=== PATIENT | female | born 1960 | race Caucasian/White ===

== ENCOUNTER → 2016-12-18 | Outpatient (CLI) | payer OTHER ==
[~2016-12-18] MED LIST: CHOL10003 PO; EYE VITAMIN; MELO-273 PO; MULT-746 PO
== END ==
LOC: LABN 10:25
PROVIDERS: ATTEND Family Medicine
DX: I89.0 Lymphedema, not elsewhere classified (principal)
CPT/HCPCS: 85379

== ENCOUNTER 2016-12-23 14:49 | Emergency (ER) | payer BC, OTHER ==
[~2016-12-23] VITALS: Ht 170.2 cm; Wt 63.8 kg
[~2016-12-23 14:49] MED LIST changes: -MELO-273 PO
[2016-12-23 14:50] VITALS: Ht 170.2 cm; Wt 63.8 kg
--- OUTSIDE RECORDS SUMMARY | 2016-12-23 14:52 | XMS REPORT | Referral Summary ---
Author Organization Unknown Address Unknown Phone Unavailable Care Team Providers Care Pressure Control Supervisor Name Role Phone Daniel Manuel Primary Care Physician [phone] Encounter [facility] LILLIAN [id number] Date(s): 09/18/14 - 09/18/14 [address], [address] [place] [address]- Discharge Diagnosis: Hyperthyroidism Discharge Diagnosis: Chronic abdominal pain Discharge Diagnosis: Well woman exam Discharge Diagnosis: Hyperlipemia Discharge Diagnosis: Hypertension Discharge Disposition: Home or Self Care Attending Physician: Julia Wise APRN Admitting Physician: Julia Wise APRN Vital Signs Most recent to 1 oldest [Reference Range]: Temperature Tympanic 36.5 degC [36.6-38.1 degC] *LOW* (09/18/14 2:46 PM) Blood Pressure 110/64 mmHg [90-140/60-90 mmHg] (09/18/14 2:46 PM) Problem List Condition Effective Dates Status Health Status Informant 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 ) Closed reduction Active compound Fracture left wrist(Confirmed) Right Axillary 2013 Active mass(Confirmed) Chicken Active pox(Confirmed) Allergies, Adverse Reactions, Alerts Substance Reaction Severity Status codeine swelling Active Medications iodine Start Date: 09/13/14 Status: Ordered Multiple Vitamins with Folic Acid and Iron oral tablet Multi-Freda Special Instructions: Multi-Freda Start Date: 09/13/14 Status: Ordered Vitamin D3 Vit D3/Folic Acid/B2/B6/B12 Special Instructions: Vit D3/Folic Acid/B2/B6/B12 Start Date: 09/13/14 Status: Ordered Results Hematology Most recent to 1 oldest [Reference Range]: WBC [4.8-10.8 K/uL] 5.9 K/uL (09/18/14 3:33 PM) RBC [4.00-5.20 M/uL] 4.43 M/uL (09/18/14 3:33 PM) Hgb [12.0-16.0 13.4 gm/dL gm/dL] (09/18/14 3:33 PM) Hct [37.0-47.0 %] 40.1 % (09/18/14 3:33 PM) MCV [82.0-99.0 fL] 90.5 fL (09/18/14 3:33 PM) MCH [27.0-32.0 pg] 30.2 pg (09/18/14 3:33 PM) MCHC [32.0-36.0 33.4 gm/dL gm/dL] (09/18/14 3:33 PM) RDW [11.5-14.5 %] 14.3 % (09/18/14 3:33 PM) Platelet [150-400 197 K/uL K/uL] (09/18/14 3:33 PM) MPV [8.8-14.8 fL] 11.0 fL (09/18/14 3:33 PM) Immature 0.2 % Granulocytes (09/18/14 3:33 PM) [0.0-1.0 %] Neutrophils [51-75 59 % %] (09/18/14 3:33 PM) Lymphocytes [20-46 30 % %] (09/18/14 3:33 PM) Monocytes [4-11 %] 10 % (09/18/14 3:33 PM) Eosinophils [0-4 %] 1 % (09/18/14 3:33 PM) Basophils [0-2 %] 1 % (09/18/14 3:33 PM) Neutro Absolute 3.48 THOUS [1.90-7.00 THOUS] (09/18/14 3:33 PM) Lymph Absolute 1.77 THOUS [0.80-3.30 THOUS] (09/18/14 3:33 PM) Hubbard Absolute 0.57 THOUS [0.30-1.00 THOUS] (09/18/14 3:33 PM) Eos Absolute 0.04 THOUS [0.00-0.50 THOUS] (09/18/14 3:33 PM) Baso Absolute 0.04 THOUS [0.00-0.20 THOUS] (09/18/14 3:33 PM) Chemistry Most recent to 1 oldest [Reference Range]: Sodium Lvl [135-144 141 mEq/L mEq/L] (09/18/14 3:33 PM) Potassium Lvl 3.8 mEq/L [3.5-5.2 mEq/L] (09/18/14 3:33 PM) Chloride [99-111 105 mEq/L mEq/L] (09/18/14 3:33 PM) CO2 [22-31 mEq/L] 27 mEq/L (09/18/14 3:33 PM) AGAP [3-20] 9 (09/18/14 3:33 PM) BUN [10-20 mg/dL] 17 mg/dL (09/18/14 3:33 PM) Glucose Lvl [70-99 69 mg/dL mg/dL] *LOW* (09/18/14 3:33 PM) Creatinine Lvl 0.82 mg/dL [0.57-1.11 mg/dL] (09/18/14 3:33 PM) eGFR [>60 mL/min] >60 mL/min 1 (09/18/14 3:33 PM) Calcium Lvl 9.4 mg/dL [8.9-10.5 mg/dL] (09/18/14 3:33 PM) Albumin Lvl [3.5-5.0 3.9 gm/dL gm/dL] (09/18/14 3:33 PM) Total Protein 6.8 gm/dL [6.4-8.3 gm/dL] (09/18/14 3:33 PM) Globulin [1.8-4.0 2.9 gm/dL gm/dL] (09/18/14 3:33 PM) ALT [0-55 unit/L] 23 unit/L (09/18/14 3:33 PM) AST [5-34 unit/L] 27 unit/L (09/18/14 3:33 PM) Alk Phos [40-150 108 unit/L unit/L] (09/18/14 3:33 PM) Bili Total [0.2-1.2 0.8 mg/dL mg/dL] (09/18/14 3:33 PM) Chol [0-199 mg/dL] 140 mg/dL (09/18/14 3:33 PM) Trig [0-149 mg/dL] 31 mg/dL (09/18/14 3:33 PM) HDL [40-84 mg/dL] 44 mg/dL (09/18/14 3:33 PM) LDL [0-130 mg/dL] 90 mg/dL (09/18/14 3:33 PM) VLDL Cholesterol 6 mg/dL [0-28 mg/dL] (09/18/14 3:33 PM) Cardiac Risk 3.2 [0.0-5.0] (09/18/14 3:33 PM) TSH with Reflex Free 0.62 T4 [0.35-4.94] (09/18/14 3:33 PM) 1Result Comment: Multiply eGFR results by 1.21 for race. Immunizations No data available for this section Procedures Procedure Date Related Diagnosis Body Site Excision, lipoma 2012 Social History Social History Type Response Smoking Status Never smoker Assessment and Plan Extracted from: Title: Ambulatory Patient Education Author: Julia Wise APRN Date: Family Medicine Health Maintenance, Female A healthy lifestyle and preventative care can promote health and wellness. Maintain regular health, dental, and eye exams. Eat a healthy diet. Foods like vegetables, fruits, whole grains, low-fat dairy products, and lean protein foods contain the nutrients you need without too many calories. Decrease your intake of foods high in solid fats, added sugars, and salt. Get information about a proper diet from your caregiver, if necessary. Regular physical exercise is one of the most important things you can do for your health. Most adults should get at least 150 minutes of moderate- intensity exercise (any activity that increases your heart rate and causes you to sweat) each week. In addition, most adults need muscle-strengthening exercises on 2 or more days a week. Maintain a healthy weight. The body mass index (BMI) is a screening tool to identify possible weight problems. It provides an estimate of body fat based on height and weight. Your caregiver can help determine your BMI, and can help you achieve or maintain a healthy weight. For adults 20 years and older: A BMI below 18.5 is considered underweight. A BMI of 18.5 to 24.9 is normal. A BMI of 25 to 29.9 is considered overweight. A BMI of 30 and above is considered obese. Maintain normal blood lipids and cholesterol by exercising and minimizing your intake of saturated fat. Eat a balanced diet with plenty of fruits and vegetables. Blood tests for lipids and cholesterol should begin at age 20 and be repeated every 5 years. If your lipid or cholesterol levels are high, you are over 50, or you are a high risk for heart disease, you may need your cholesterol levels checked more frequently.Ongoing high lipid and cholesterol levels should be treated with medicines if diet and exercise are not effective. If you smoke, find out from your caregiver how to quit. If you do not use tobacco, do not start. Lung cancer screening is recommended for adults aged 5580 years who are at high risk for developing lung cancer because of a history of smoking. Yearly low-dose computed tomography (CT) is recommended for people who have at least a [id number] history of smoking and are a current smoker or have quit within the past 15 years. A pack year of smoking is smoking an average of 1 pack of cigarettes a day for 1 year (for example: 1 pack a day for 30 years or 2 packs a day for 15 years). Yearly screening should continue until the smoker has stopped smoking for at least 15 years. Yearly screening should also be stopped for people who develop a health problem that would prevent them from having lung cancer treatment. If you are , do not drink alcohol. If you are , be very cautious about drinking alcohol. If you are not and choose to drink alcohol, do not exceed 1 drink per day. One drink is considered to be 12 ounces (355 mL) of beer, 5 ounces (148 mL) of wine, or 1.5 ounces (44 mL) of liquor. Avoid use of street drugs. Do not share needles with anyone. Ask for help if you need support or instructions about stopping the use of drugs. High blood pressure causes heart disease and increases the risk of stroke. Blood pressure should be checked at least every 1 to 2 years. Ongoing high blood pressure should be treated with medicines, if weight loss and exercise are not effective. If you are 55 to 79 years old, ask your caregiver if you should take aspirin to prevent strokes. Diabetes screening involves taking a blood sample to check your fasting blood sugar level. This should be done once every 3 years, after age 45, if you are within normal weight and without risk factors for diabetes. Testing should be considered at a younger age or be carried out more frequently if you are overweight and have at least 1 risk factor for diabetes. Breast cancer screening is essential preventative care for women. You should practice "breast self-awareness." This means understanding the normal appearance and feel of your breasts and may include breast self-examination. Any changes detected, no matter how small, should be reported to a caregiver. Women in their 20s and 30s should have a clinical breast exam (CBE) by a caregiver as part of a regular health exam every 1 to 3 years. After age 40, women should have a CBE every year. Starting at age 40, women should consider having a mammogram (breast X-ray ) every year. Women who have a family history of breast cancer should talk to their caregiver about genetic screening. Women at a high risk of breast cancer should talk to their caregiver about having an MRI and a mammogram every year. Breast cancer gene (BRCA )-related cancer risk assessment is recommended for women who have family members with BRCA -related cancers. BRCA -related cancers include breast, ovarian, tubal, and peritoneal cancers. Having family members with these cancers may be associated with an increased risk for harmful changes (mutations ) in the breast cancer genes BRCA1 and BRCA2 . Results of the assessment will determine the need for genetic counseling and BRCA1 and BRCA2 testing. The Pap test is a screening test for cervical cancer. Women should have a Pap test starting at age 21. Between ages 21 and 29, Pap tests should be repeated every 2 years. Beginning at age 30, you should have a Pap test every 3 years as long as the past 3 Pap tests have been normal. If you had a hysterectomy for a problem that was not cancer or a condition that could lead to cancer, then you no longer need Pap tests. If you are between ages 65 and 70 , and you have had normal Pap tests going back 10 years, you no longer need Pap tests. If you have had past treatment for cervical cancer or a condition that could lead to cancer, you need Pap tests and screening for cancer for at least 20 years after your treatment. If Pap tests have been discontinued, risk factors (such as a new sexual partner) need to be reassessed to determine if screening should be resumed. Some women have medical problems that increase the chance of getting cervical cancer. In these cases, your caregiver may recommend more frequent screening and Pap tests. The human papillomavirus (HPV) test is an additional test that may be used for cervical cancer screening. The HPV test looks for the virus that can cause the cell changes on the cervix. The cells collected during the Pap test can be tested for HPV. The HPV test could be used to screen women aged 30 years and older, and should be used in women of any age who have unclear Pap test results. After the age of 30, women should have HPV testing at the same frequency as a Pap test. Colorectal cancer can be detected and often prevented. Most routine colorectal cancer screening begins at the age of 50 and continues through age 75. However, your caregiver may recommend screening at an earlier age if you have risk factors for colon cancer. On a yearly basis, your caregiver may provide home test kits to check for hidden blood in the stool. Use of a small camera at the end of a tube, to directly examine the colon (sigmoidoscopy or colonoscopy ), can detect the earliest forms of colorectal cancer. Talk to your caregiver about this at age 50, when routine screening begins. Direct examination of the colon should be repeated every 5 to 10 years through age 75, unless early forms of pre-cancerous polyps or small growths are found. Hepatitis C blood testing is recommended for all people born from 1945 through 1965 and any individual with known risks for hepatitis C. Practice safe sex. Use condoms and avoid high-risk sexual practices to reduce the spread of sexually transmitted infections (STIs). Sexually active women aged 25 and younger should be checked for Chlamydia, which is a common sexually transmitted infection. Older women with new or multiple partners should also be tested for Chlamydia. Testing for other STIs is recommended if you are sexually active and at increased risk. Osteoporosis is a disease in which the bones lose minerals and strength with aging. This can result in serious bone fractures. The risk of osteoporosis can be identified using a bone density scan. Women ages 65 and over and women at risk for fractures or osteoporosis should discuss screening with their caregivers. Ask your caregiver whether you should be taking a calcium supplement or vitamin D to reduce the rate of osteoporosis. Menopause can be associated with physical symptoms and risks. Hormone replacement therapy is available to decrease symptoms and risks. You should talk to your caregiver about whether hormone replacement therapy is right for you. Use sunscreen. Apply sunscreen liberally and repeatedly throughout the day. You should seek shade when your shadow is shorter than you. Protect yourself by wearing long sleeves, pants, a wide-brimmed hat, and sunglasses year round, whenever you are outdoors. Notify your caregiver of new moles or changes in moles, especially if there is a change in shape or color. Also notify your caregiver if a mole is larger than the size of a pencil eraser. Stay current with your immunizations. Document Released: 02/22/2012 Document Revised: 12/04/2013 Document Reviewed: [facility] Patient Information 2014 [facility] [employer]. Preventive Care for Adults, Female A healthy lifestyle and preventive care can promote health and wellness. Preventive health guidelines for women include the following [place] practices. A routine yearly physical is a good way to check with your caregiver about your health and preventive screening. It is a chance to share any concerns and updates on your health, and to receive a thorough exam. Visit your dentist for a routine exam and preventive care every 6 months. [place] your teeth twice a day and floss once a day. Good oral hygiene prevents tooth decay and gum disease. The frequency of eye exams is based on your age, health, family medical history, use of contact lenses, and other factors. Follow your caregiver's recommendations for frequency of eye exams. Eat a healthy diet. Foods like vegetables, fruits, whole grains, low-fat dairy products, and lean protein foods contain the nutrients you need without too many calories. Decrease your intake of foods high in solid fats, added sugars, and salt. Eat the right amount of calories for you.Get information about a proper diet from your caregiver, if necessary. Regular physical exercise is one of the most important things you can do for your health. Most adults should get at least 150 minutes of moderate- intensity exercise (any activity that increases your heart rate and causes you to sweat) each week. In addition, most adults need muscle-strengthening exercises on 2 or more days a week. Maintain a healthy weight. The body mass index (BMI) is a screening tool to identify possible weight problems. It provides an estimate of body fat based on height and weight. Your caregiver can help determine your BMI, and can help you achieve or maintain a healthy weight.For adults 20 years and older: A BMI below 18.5 is considered underweight. A BMI of 18.5 to 24.9 is normal. A BMI of 25 to 29.9 is considered overweight. A BMI of 30 and above is considered obese. Maintain normal blood lipids and cholesterol levels by exercising and minimizing your intake of saturated fat. Eat a balanced diet with plenty of fruit and vegetables. Blood tests for lipids and cholesterol should begin at age 20 and be repeated every 5 years. If your lipid or cholesterol levels are high, you are over 50, or you are at high risk for heart disease, you may need your cholesterol levels checked more frequently.Ongoing high lipid and cholesterol levels should be treated with medicines if diet and exercise are not effective. If you smoke, find out from your caregiver how to quit. If you do not use tobacco, do not start. Lung cancer screening is recommended for adults aged 5580 years who are at high risk for developing lung cancer because of a history of smoking. Yearly low-dose computed tomography (CT) is recommended for people who have at least a [id number] history of smoking and are a current smoker or have quit within the past 15 years. A pack year of smoking is smoking an average of 1 pack of cigarettes a day for 1 year (for example: 1 pack a day for 30 years or 2 packs a day for 15 years). Yearly screening should continue until the smoker has stopped smoking for at least 15 years. Yearly screening should also be stopped for people who develop a health problem that would prevent them from having lung cancer treatment. If you are , do not drink alcohol. If you are , be very cautious about drinking alcohol. If you are not and choose to drink alcohol, do not exceed 1 drink per day. One drink is considered to be 12 ounces (355 mL) of beer, 5 ounces (148 mL) of wine, or 1.5 ounces (44 mL) of liquor. Avoid use of street drugs. Do not share needles with anyone. Ask for help if you need support or instructions about stopping the use of drugs. High blood pressure causes heart disease and increases the risk of stroke. Your blood pressure should be checked at least every 1 to 2 years. Ongoing high blood pressure should be treated with medicines if weight loss and exercise are not effective. If you are 55 to 79 years old, ask your caregiver if you should take aspirin to prevent strokes. Diabetes screening involves taking a blood sample to check your fasting blood sugar level. This should be done once every 3 years, after age 45, if you are within normal weight and without risk factors for diabetes. Testing should be considered at a younger age or be carried out more frequently if you are overweight and have at least 1 risk factor for diabetes. Breast cancer screening is essential preventive care for women. You should practice "breast self-awareness." This means understanding the normal appearance and feel of your breasts and may include breast self-examination. Any changes detected, no matter how small, should be reported to a caregiver. Women in their 20s and 30s should have a clinical breast exam (CBE) by a caregiver as part of a regular health exam every 1 to 3 years. After age 40, women should have a CBE every year. Starting at age 40, women should consider having a mammography (breast X-ray test ) every year. Women who have a family history of breast cancer should talk to their caregiver about genetic screening. Women at a high risk of breast cancer should talk to their caregivers about having magnetic resonance imaging (MRI) and a mammography every year. Breast cancer gene (BRCA )-related cancer risk assessment is recommended for women who have family members with BRCA -related cancers. BRCA -related cancers include breast, ovarian, tubal, and peritoneal cancers. Having family members with these cancers may be associated with an increased risk for harmful changes (mutations ) in the breast cancer genes BRCA1 and BRCA2 . Results of the assessment will determine the need for genetic counseling and BRCA1 and BRCA2 testing. The Pap test is a screening test for cervical cancer. A Pap test can show cell changes on the cervix that might become cervical cancer if left untreated. A Pap test is a procedure in which cells are obtained and examined from the lower end of the uterus (cervix ). Women should have a Pap test starting at age 21. Between ages 21 and 29, Pap tests should be repeated every 2 years. Beginning at age 30, you should have a Pap test every 3 years as long as the past 3 Pap tests have been normal. Some women have medical problems that increase the chance of getting cervical cancer. Talk to your caregiver about these problems. It is especially important to talk to your caregiver if a new problem develops soon after your last Pap test. In these cases, your caregiver may recommend more frequent screening and Pap tests. The above recommendations are the same for women who have or have not gotten the vaccine for human papillomavirus (HPV). If you had a hysterectomy for a problem that was not cancer or a condition that could lead to cancer, then you no longer need Pap tests. Even if you no longer need a Pap test, a regular exam is a good idea to make sure no other problems are starting. If you are between ages 65 and 70, and you have had normal Pap tests going back 10 years, you no longer need Pap tests. Even if you no longer need a Pap test, a regular exam is a good idea to make sure no other problems are starting. If you have had past treatment for cervical cancer or a condition that could lead to cancer, you need Pap tests and screening for cancer for at least 20 years after your treatment. If Pap tests have been discontinued, risk factors (such as a new sexual partner) need to be reassessed to determine if screening should be resumed. The HPV test is an additional test that may be used for cervical cancer screening. The HPV test looks for the virus that can cause the cell changes on the cervix. The cells collected during the Pap test can be tested for HPV. The HPV test could be used to screen women aged 30 years and older, and should be used in women of any age who have unclear Pap test results. After the age of 30 , women should have HPV testing at the same frequency as a Pap test. Colorectal cancer can be detected and often prevented. Most routine colorectal cancer screening begins at the age of 50 and continues through age 75. However, your caregiver may recommend screening at an earlier age if you have risk factors for colon cancer. On a yearly basis, your caregiver may provide home test kits to check for hidden blood in the stool. Use of a small camera at the end of a tube, to directly examine the colon (sigmoidoscopy or colonoscopy ), can detect the earliest forms of colorectal cancer. Talk to your caregiver about this at age 50, when routine screening begins. Direct examination of the colon should be repeated every 5 to 10 years through age 75, unless early forms of pre-cancerous polyps or small growths are found. Hepatitis C blood testing is recommended for all people born from 1945 through 1965 and any individual with known risks for hepatitis C. Practice safe sex. Use condoms and avoid high-risk sexual practices to reduce the spread of sexually transmitted infections (STIs). STIs include gonorrhea, chlamydia, syphilis, trichomonas, herpes, HPV, and human immunodeficiency virus (HIV). Herpes, HIV, and HPV are viral illnesses that have no cure. They can result in disability, cancer, and . Sexually active women aged 25 and younger should be checked for chlamydia. Older women with new or multiple partners should also be tested for chlamydia. Testing for other STIs is recommended if you are sexually active and at increased risk. Osteoporosis is a disease in which the bones lose minerals and strength with aging. This can result in serious bone fractures. The risk of osteoporosis can be identified using a bone density scan. Women ages 65 and over and women at risk for fractures or osteoporosis should discuss screening with their caregivers. Ask your caregiver whether you should take a calcium supplement or vitamin D to reduce the rate of osteoporosis. Menopause can be associated with physical symptoms and risks. Hormone replacement therapy is available to decrease symptoms and risks. You should talk to your caregiver about whether hormone replacement therapy is right for you. Use sunscreen. Apply sunscreen liberally and repeatedly throughout the day. You should seek shade when your shadow is shorter than you. Protect yourself by wearing long sleeves, pants, a wide-brimmed hat, and sunglasses year round, whenever you are outdoors. Once a month, do a whole body skin exam, using a mirror to look at the skin on your back. Notify your caregiver of new moles, moles that have irregular borders, moles that are larger than a pencil eraser, or moles that have changed in shape or color. Stay current with required immunizations. Influenza vaccine. All adults should be immunized every year. Tetanus, diphtheria, and acellular pertussis (Td, Tdap) vaccine. women should receive 1 dose of Tdap vaccine during each . The dose should be obtained regardless of the length of time since the last dose. Immunization is preferred during the 27th to 36th week of gestation. An adult who has not previously received Tdap or who does not know her vaccine status should receive 1 dose of Tdap. This initial dose should be followed by tetanus and diphtheria toxoids (Td) booster doses every 10 years. Adults with an unknown or incomplete history of completing a 3-dose immunization series with Td -containing vaccines should begin or complete a primary immunization series including a Tdap dose. Adults should receive a Td booster every 10 years. Varicella vaccine. An adult without evidence of immunity to varicella should receive 2 doses or a second dose if she has previously received 1 dose. females who do not have evidence of immunity should receive the first dose after . This first dose should be obtained before leaving the health care facility. The second dose should be obtained 48 weeks after the first dose. Human papillomavirus (HPV) vaccine. Females aged 1326 years who have not received the vaccine previously should obtain the 3-dose series. The vaccine is not recommended for use in females. However, testing is not needed before receiving a dose. If a female is found to be after receiving a dose, no treatment is needed. In that case, the remaining doses should be delayed until after the . Immunization is recommended for any person with an immunocompromised condition through the age of 26 years if she did not get any or all doses earlier. During the 3-dose series, the second dose should be obtained 48 weeks after the first dose. The third dose should be obtained 24 weeks after the first dose and 16 weeks after the second dose. Zoster vaccine. One dose is recommended for adults aged 60 years or older unless certain conditions are present. Measles, mumps, and rubella (MMR) vaccine. Adults born before 1956 generally are considered immune to measles and mumps. Adults born in 1956 or later should have 1 or more doses of MMR vaccine unless there is a contraindication to the vaccine or there is laboratory evidence of immunity to each of the three diseases. A routine second dose of MMR vaccine should be obtained at least 28 days after the first dose for students attending postsecondary schools, health care workers, or international travelers. People who received inactivated measles vaccine or an unknown type of measles vaccine during should receive 2 doses of MMR vaccine. People who received inactivated mumps vaccine or an unknown type of mumps vaccine before 1978 and are at high risk for mumps infection should consider immunization with 2 doses of MMR vaccine. For females of childbearing age, rubella immunity should be determined. If there is no evidence of immunity, females who are not should be vaccinated. If there is no evidence of immunity, females who are should delay immunization until after . Unvaccinated health care workers born before 1956 who lack laboratory evidence of measles, mumps, or rubella immunity or laboratory confirmation of disease should consider measles and mumps immunization with 2 doses of MMR vaccine or rubella immunization with 1 dose of MMR vaccine. Pneumococcal 13-valent conjugate (PCV13) vaccine. When indicated, a person who is uncertain of her immunization history and has no record of immunization should receive the PCV13 vaccine. An adult aged 19 years or older who has certain medical conditions and has not been previously immunized should receive 1 dose of PCV13 vaccine. This PCV13 should be followed with a dose of pneumococcal polysaccharide (PPSV23) vaccine. The PPSV23 vaccine dose should be obtained at least 8 weeks after the dose of PCV13 vaccine. An adult aged 19 years or older who has certain medical conditions and previously received 1 or more doses of PPSV23 vaccine should receive 1 dose of PCV13. The PCV13 vaccine dose should be obtained 1 or more years after the last PPSV23 vaccine dose. Pneumococcal polysaccharide (PPSV23) vaccine. When PCV13 is also indicated , PCV13 should be obtained first. All adults aged 65 years and older should be immunized. An adult younger than age 65 years who has certain medical conditions should be immunized. Any person who resides in a residential or long -term care facility should be immunized. An adult smoker should be immunized. People with an immunocompromised condition and certain other conditions should receive both PCV13 and PPSV23 vaccines. People with human immunodeficiency virus (HIV) infection should be immunized as soon as possible after diagnosis. Immunization during chemotherapy or radiation therapy should be avoided. Routine use of PPSV23 vaccine is not recommended for [place] Indians, [place] Natives, or people younger than 65 years unless there are medical conditions that require PPSV23 vaccine. When indicated, people who have unknown immunization and have no record of immunization should receive PPSV23 vaccine. One-time revaccination 5 years after the first dose of PPSV23 is recommended for people aged 1964 years who have chronic kidney failure, nephrotic syndrome, asplenia, or immunocompromised conditions. People who received 12 doses of PPSV23 before age 65 years should receive another dose of PPSV23 vaccine at age 65 years or later if at least 5 years have passed since the previous dose. Doses of PPSV23 are not needed for people immunized with PPSV23 at or after age 65 years. Meningococcal vaccine. Adults with asplenia or persistent complement component deficiencies should receive 2 doses of quadrivalent meningococcal conjugate (MenACWY-D) vaccine. The doses should be obtained at least 2 months apart. Microbiologists working with certain meningococcal bacteria, recruits, people at risk during an outbreak, and people who travel to or live in countries with a high rate of meningitis should be immunized. A first-year college student up through age 21 years who is living in a residence [place] should receive a dose if she did not receive a dose on or after her 16th birthday. Adults who have certain high-risk conditions should receive one or more doses of vaccine. Hepatitis A vaccine. Adults who wish to be protected from this disease, have certain high-risk conditions, work with hepatitis A-infected animals, work in hepatitis A research labs, or travel to or work in countries with a high rate of hepatitis A should be immunized. Adults who were previously unvaccinated and who anticipate close contact with an international adoptee during the first 60 days after arrival in the [place] from a country with a high rate of hepatitis A should be immunized. Hepatitis B vaccine. Adults who wish to be protected from this disease, have certain high-risk conditions, may be exposed to blood or other infectious body fluids, are household contacts or sex partners of hepatitis B positive people, are clients or workers in certain care facilities, or travel to or work in countries with a high rate of hepatitis B should be immunized. Haemophilus influenzae type b (Hib) vaccine. A previously unvaccinated person with asplenia or sickle cell disease or having a scheduled splenectomy should receive 1 dose of Hib vaccine. Regardless of previous immunization, a recipient of a hematopoietic stem cell transplant should receive a 3-dose series 612 months after her successful transplant. Hib vaccine is not recommended for adults with HIV infection. Preventive Services / Frequency Ages 19 to 39 Blood pressure check. / Every 1 to 2 years. Lipid and cholesterol check. / Every 5 years beginning at age 20. Clinical breast exam. / Every 3 years for women in their 20s and 30s. BRCA -related cancer risk assessment. / For women who have family members with a BRCA -related cancer (breast, ovarian, tubal, or peritoneal cancers). Pap test. / Every 2 years from ages 21 through 29. Every 3 years starting at age 30 through age 65 or 70 with a history of 3 consecutive normal Pap tests. HPV screening. / Every 3 years from ages 30 through ages 65 to 70 with a history of 3 consecutive normal Pap tests. Hepatitis C blood test. / For any individual with known risks for hepatitis C. Skin self-exam. / Monthly. Influenza vaccine. / Every year. Tetanus, diphtheria, and acellular pertussis (Tdap, Td) vaccine. / Consult your caregiver. women should receive 1 dose of Tdap vaccine during each . 1 dose of Td every 10 years. Varicella vaccine. / Consult your caregiver. females who do not have evidence of immunity should receive the first dose after . HPV vaccine. / 3 doses over 6 months, if 26 and younger. The vaccine is not recommended for use in females. However, testing is not needed before receiving a dose. Measles, mumps, rubella (MMR) vaccine. / You need at least 1 dose of MMR if you were born in 1957 or later. You may also need a 2nd dose. For females of childbearing age, rubella immunity should be determined. If there is no evidence of immunity, females who are not should be vaccinated. If there is no evidence of immunity, females who are should delay immunization until after . Pneumococcal 13-valent conjugate (PCV13) vaccine. / Consult your caregiver. Pneumococcal polysaccharide (PPSV23) vaccine. / 1 to 2 doses if you smoke cigarettes or if you have certain conditions. Meningococcal vaccine. / 1 dose if you are age 19 to 21 years and a first -year college student living in a residence [place], or have one of several medical conditions, you need to get vaccinated against meningococcal disease. You may also need additional booster doses. Hepatitis A vaccine. / Consult your caregiver. Hepatitis B vaccine. / Consult your caregiver. Haemophilus influenzae type b (Hib) vaccine. / Consult your caregiver. Ages 40 to 64 Blood pressure check. / Every 1 to 2 years. Lipid and cholesterol check. / Every 5 years beginning at age 20. Lung cancer screening. / Every year if you are aged 5580 years and have a 78-[id number]-cnyy history of smoking and currently smoke or have quit within the past 15 years. Yearly screening is stopped once you have quit smoking for at least 15 years or develop a health problem that would prevent you from having lung cancer treatment. Clinical breast exam. / Every year after age 40. BRCA -related cancer risk assessment. / For women who have family members with a BRCA -related cancer (breast, ovarian, tubal, or peritoneal cancers). Mammogram. / Every year beginning at age 40 and continuing for as long as you are in good health. Consult with your caregiver. Pap test. / Every 3 years starting at age 30 through age 65 or 70 with a history of 3 consecutive normal Pap tests. HPV screening. / Every 3 years from ages 30 through ages 65 to 70 with a history of 3 consecutive normal Pap tests. Fecal occult blood test (FOBT) of stool. / Every year beginning at age 50 and continuing until age 75. You may not need to do this test if you get a colonoscopy every 10 years. Flexible sigmoidoscopy or colonoscopy. / Every 5 years for a flexible sigmoidoscopy or every 10 years for a colonoscopy beginning at age 50 and continuing until age 75. Hepatitis C blood test. / For all people born from 1945 through 1965 and any individual with known risks for hepatitis C. Skin self-exam. / Monthly. Influenza vaccine. / Every year. Tetanus, diphtheria, and acellular pertussis (Tdap/Td) vaccine. / Consult your caregiver. women should receive 1 dose of Tdap vaccine during each . 1 dose of Td every 10 years. Varicella vaccine. / Consult your caregiver. females who do not have evidence of immunity should receive the first dose after . Zoster vaccine. / 1 dose for adults aged 60 years or older. Measles, mumps, rubella (MMR) vaccine. / You need at least 1 dose of MMR if you were born in 1957 or later. You may also need a 2nd dose. For females of childbearing age, rubella immunity should be determined. If there is no evidence of immunity, females who are not should be vaccinated. If there is no evidence of immunity, females who are should delay immunization until after . Pneumococcal 13-valent conjugate (PCV13) vaccine. / Consult your caregiver. Pneumococcal polysaccharide (PPSV23) vaccine. / 1 to 2 doses if you smoke cigarettes or if you have certain conditions. Meningococcal vaccine. / Consult your caregiver. Hepatitis A vaccine. / Consult your caregiver. Hepatitis B vaccine. / Consult your caregiver. Haemophilus influenzae type b (Hib) vaccine. / Consult your caregiver. Ages 65 and over Blood pressure check. / Every 1 to 2 years. Lipid and cholesterol check. / Every 5 years beginning at age 20. Lung cancer screening. / Every year if you are aged 5580 years and have a 72-czjp-tzuz history of smoking and currently smoke or have quit within the past 15 years. Yearly screening is stopped once you have quit smoking for at least 15 years or develop a health problem that would prevent you from having lung cancer treatment. Clinical breast exam. / Every year after age 40. BRCA -related cancer risk assessment. / For women who have family members with a BRCA -related cancer (breast, ovarian, tubal, or peritoneal cancers). Mammogram. / Every year beginning at age 40 and continuing for as long as you are in good health. Consult with your caregiver. Pap test. / Every 3 years starting at age 30 through age 65 or 70 with a 3 consecutive normal Pap tests. Testing can be stopped between 65 and 70 with 3 consecutive normal Pap tests and no abnormal Pap or HPV tests in the past 10 years. HPV screening. / Every 3 years from ages 30 through ages 65 or 70 with a history of 3 consecutive normal Pap tests. Testing can be stopped between 65 and 70 with 3 consecutive normal Pap tests and no abnormal Pap or HPV tests in the past 10 years. Fecal occult blood test (FOBT) of stool. / Every year beginning at age 50 and continuing until age 75. You may not need to do this test if you get a colonoscopy every 10 years. Flexible sigmoidoscopy or colonoscopy. / Every 5 years for a flexible sigmoidoscopy or every 10 years for a colonoscopy beginning at age 50 and continuing until age 75. Hepatitis C blood test. / For all people born from 1945 through 1965 and any individual with known risks for hepatitis C. Osteoporosis screening. / A one-time screening for women ages 65 and over and women at risk for fractures or osteoporosis. Skin self-exam. / Monthly. Influenza vaccine. / Every year. Tetanus, diphtheria, and acellular pertussis (Tdap/Td) vaccine. / 1 dose of Td every 10 years. Varicella vaccine. / Consult your caregiver. Zoster vaccine. / 1 dose for adults aged 60 years or older. Pneumococcal 13-valent conjugate (PCV13) vaccine. / Consult your caregiver. Pneumococcal polysaccharide (PPSV23) vaccine. / 1 dose for all adults aged 65 years and older. Meningococcal vaccine. / Consult your caregiver. Hepatitis A vaccine. / Consult your caregiver. Hepatitis B vaccine. / Consult your caregiver. Haemophilus influenzae type b (Hib) vaccine. / Consult your caregiver. Family history and personal history of risk and conditions may change your caregiver's recommendations. Document Released: 10/05/2002 Document Revised: 12/04/2013 Document Reviewed: [facility] Patient Information 2014 [employer]. No follow up information was provided. Extracted from: Title: Office Visit Note Author: Julia Wise APRN Date: 09/18/14 Assessment/Plan Chronic abdominal pain Advised use of OTC vaginal lubricant for vaginal dryness. Ordered: Office Visit Level 4 Est 12313 Hyperlipemia Yearly lab work to be drawn today. Hypertension Yearly lab work to be drawn today. Ordered: Office Visit Level 4 Est 09139 Hyperthyroidism Yearly lab work to be drawn today. Well woman exam Normal exam, Pap sent to lab, will notify pt. of results when available. Pt. to schedule Mammogram. Return in 2-3 years or sooner w/ problems or concerns. Ordered: Office Visit Level 4 Est 31217
--- OUTSIDE RECORDS SUMMARY | 2016-12-23 14:52 | XMS REPORT | Continuity of Care Document ---
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 Follow-up examination, following unspecified surgery - *Routine VARICELLA UNCOMPLICATED - Viral warts, unspecified - *Acute Localized superficial swelling, mass, or lump - *Chronic 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 - Chronic Localized superficial swelling, mass, or lump - *Acute Bursitis of right hip - *Stable Follow-up examination, following other surgery - *Acute 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 - Chronic Gynecological Examination - *Routine Family History Family Member Diagnosis Age At Onset Status Paternal grandmother (Unknown) Diabetes Yes Mother (Unknown) Cancer - colon Yes Mother (Unknown) Cancer - thyroid Yes Sister (Unknown) Cancer - thyroid Yes Social History Social History Element Description Quantity Unknown Allergies, Adverse Reactions, Alerts Substance Reaction Severity Status CODEINE swelling Unknown Medications Medication Instructions Dosage Effective Dates (start - stop) Status MULTI-JADE (unknown strength) - Active IODINE (unknown strength) - Active FOLGARD (unknown strength) - Active Immunizations Vaccine Date Status Comments Unknown Results Test Name Date and Time Measure Units Reference Range Abnormal Flag Comments Unknown Vital Signs Date / Time: Height Weight Pulse Rate Blood Pressure Temperature Unknown Procedures Procedure Date Unknown Encounters Encounter Location Date Patient Visit [facility] New Pod Patient Visit [facility] Ophthamology Patient Visit [facility] New Surg Patient Visit Conversion Patient Visit [facility] New Pod Patient Visit [facility] New Surg Patient Visit [facility] Ophthamology Patient [facility] Patient Visit [facility] New Surg Patient Visit [facility] Ophthamology Patient Visit [facility] Advance Directives Directive Effective Date Unknown
--- OUTSIDE RECORDS SUMMARY | 2016-12-23 14:52 | XMS REPORT | Continuity of Care Document ---
Author Author [facility] Organization [facility] Address Unknown Phone Unavailable Allergies Medications Problems Procedures Results Encounters ACCT No. Visit Date/Time Discharge Status Pt. Type Provider Facility Loc./Unit Complaint [id number] 10/18/2013 14:42:00 10/18/2013 23 :59:59 [facility] Outpatient [id number] 09/18/2013 15:51:00 09/18/2013 23 :59:59 CLS Outpatient [id number] 09/08/2013 08:55:00 09/08/2013 23 :59:59 CLS Outpatient
--- OUTSIDE RECORDS SUMMARY | 2016-12-23 14:52 | XMS REPORT | Referral Summary ---
Author Author [facility] Organization [facility] Address Unknown Phone Unavailable Care Team Providers Care Freight Elevator Operator Name Role Phone Manuel Sanchez Primary Care Physician [phone] Encounter [facility] [id number] Date(s): 10/19/16 - 10/19/16 [facility] [address] [place] [address]- Discharge Diagnosis: Strain of left trapezius muscle Discharge Diagnosis: Sternoclavicular joint strain Discharge Disposition: 01-Home or Self Care Attending Physician: Norbert Reyes MD Admitting Physician: Norbert Reyes MD Vital Signs Most recent to 1 oldest [Reference Range]: Temperature Tympanic 37.0 degC [36.6-38.1 degC] (10/19/16 3:45 PM) Peripheral Pulse 100 bpm Rate [60-100 bpm] (10/19/16 3:45 PM) Respiratory Rate 16 br/min [14-20 br/min] (10/19/16 3:45 PM) Blood Pressure 110/78 mmHg [90-140/60-90 mmHg] (10/19/16 3:45 PM) Problem List Condition Effective Dates Status Health Status Informant 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 ) Closed reduction Active compound Fracture left wrist(Confirmed) Right Axillary 2012 Active mass(Confirmed) Chicken Active pox(Confirmed) Allergies, Adverse Reactions, Alerts Substance Reaction Severity Status codeine swelling Active Medications iodine Start Date: 09/13/14 Status: Ordered Multiple Vitamins with Folic Acid and Iron oral tablet Multi-Freda Start Date: 09/13/14 Status: Ordered Vitamin D3 Vit D3/Folic Acid/B2/B6/B12 Start Date: 09/13/14 Status: Ordered Results No data available for this section Immunizations No data available for this section Procedures Procedure Date Related Diagnosis Body Site Excision, lipoma 2012 Social History Social History Type Response Smoking Status Never smoker Assessment and Plan No data available for this section
--- OUTSIDE RECORDS SUMMARY | 2016-12-23 14:52 | XMS REPORT | Referral Summary ---
Author Author [facility] Organization [facility] Address Unknown Phone Unavailable Care Team Providers Care Privacy Specialist Name Role Phone Manuel Sanchez Primary Care Physician [phone] Encounter Date(s): 01/09/15 - 01/09/15 [facility] [address] [place] [address]- Discharge Diagnosis: Crushing injury of great toe of left foot Discharge Disposition: 01-Home or Self Care Attending Physician: Ryan Sanchez DO Admitting Physician: Ryan Sanchez DO Vital Signs Most recent to 1 oldest [Reference Range]: Temperature Tympanic 35.2 degC [36.6-38.1 degC] *LOW* (01/09/15 3:09 PM) Peripheral Pulse 78 bpm Rate [60-100 bpm] (01/09/15 3:09 PM) Blood Pressure 102/65 mmHg [90-140/60-90 mmHg] (01/09/15 3:09 PM) Problem List Condition Effective Dates Status Health Status Informant 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 ) Closed reduction Active compound Fracture left wrist(Confirmed) Right Axillary 2012 Active mass(Confirmed) Chicken Active pox(Confirmed) Allergies, Adverse Reactions, Alerts Substance Reaction Severity Status codeine swelling Active Medications iodine Start Date: 09/13/14 Status: Ordered meloxicam 15 mg oral tablet 15 mg 1 tabs, Oral, Daily, # 30 tabs, 0 Refill(s), Pharmacy: [id number], 1 tabs Oral Daily Start Date: 01/09/15 Status: Ordered Multiple Vitamins with Folic Acid [...] smoker Assessment and Plan Extracted from: Title: Office Visit Note workman's Author: Ryan Sanchez DO Date: 01/09/15 comp Assessment/Plan Crushing injury of great toe of left foot 1. Imaging of the left foot is negative for fracture. 2. Meloxicam 15 mg daily for 2-4 weeks. 3. Follow-up if no improvement or worsening presentation. Ordered: meloxicam, 15 mg 1 tabs, Oral, Daily, # 30 tabs, 0 Refill(s), Pharmacy: [id number], 1 tabs Oral Daily Office Visit Level 3 Est 03886 XR Toes Great Left
--- OUTSIDE RECORDS SUMMARY | 2016-12-23 14:52 | XMS REPORT | Continuity of Care Document ---
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 Follow-up examination, following unspecified surgery - *Routine VARICELLA UNCOMPLICATED - Viral warts, unspecified - *Chronic Localized superficial swelling, mass, or lump - [...] [facility] Patient Visit Conversion Patient Visit [facility] New Pod Patient Visit [facility] New [facility] Patient [facility] Patient Visit [facility] Patient Visit [facility] New Surg Patient Visit [facility] Op[facility]hamology Patient Visit [facility] Advance Directives Directive Effective Date Unknown
--- OUTSIDE RECORDS SUMMARY | 2016-12-23 14:52 | XMS REPORT | Referral Summary ---
Author Author [facility] Organization [facility] Address Unknown Phone Unavailable Care Team Providers Care Field Clerk Name Role Phone Manuel Sanchez Primary Care Physician [phone] Encounter Date(s): 09/19/15 - 09/19/15 [facility] [address] [place] [id number]- Discharge Diagnosis: Osteoarthritis of left hand Discharge Diagnosis: Lipid screening Discharge Diagnosis: Well woman exam (no gynecological exam) Discharge Disposition: 01-Home or Self Care Attending Physician: Eloise Rizo PA-C Admitting Physician: Eloise Rizo PA-C Vital Signs Most recent to 1 oldest [Reference Range]: Temperature Tympanic 36.5 degC [36.6-38.1 degC] *LOW* (09/19/15 4:19 PM) Peripheral Pulse 74 bpm Rate [60-100 bpm] (09/19/15 4:19 PM) Respiratory Rate 18 br/min [14-20 br/min] (09/19/15 4:19 PM) Blood Pressure 110/62 mmHg [90-140/60-90 mmHg] (09/19/15 4:19 PM) Problem List Condition Effective Dates Status [...] to 1 oldest [Reference Range]: WBC [4.8-10.8 5.0 10*3/uL 10*3/uL] (09/19/15 4:50 PM) RBC [4.00-5.20] 4.42 (09/19/15 4:50 PM) Hgb [12.0-16.0 13.4 gm/dL gm/dL] (09/19/15 4:50 PM) Hct [37.0-47.0 %] 40.2 % (09/19/15 4:50 PM) MCV [82.0-99.0 fL] 91.0 fL (09/19/15 4:50 PM) MCH [27.0-32.0 pg] 30.3 pg (09/19/15 4:50 PM) MCHC [32.0-36.0 33.3 gm/dL gm/dL] (09/19/15 4:50 PM) RDW [11.5-14.5 %] 13.7 % (09/19/15 4:50 PM) Platelet [150-400 162 10*3/uL 10*3/uL] (09/19/15 4:50 PM) MPV [8.8-14.8 fL] 11.2 fL (09/19/15 4:50 PM) Immature 0.0 % Granulocytes (09/19/15 4:50 PM) [0.0-1.0 %] Neutrophils [51-75 57 % %] (09/19/15 4:50 PM) Lymphocytes [20-46 32 % %] (09/19/15 4:50 PM) Monocytes [4-11 %] 10 % (09/19/15 4:50 PM) Eosinophils [0-4 %] 1 % (09/19/15 4:50 PM) Basophils [0-2 %] 0 % (09/19/15 4:50 PM) Neutro Absolute 2.82 10*3 [1.90-7.00 10*3] (09/19/15 4:50 PM) Lymph Absolute 1.58 10*3 [0.80-3.30 10*3] (09/19/15 4:50 PM) Miner Absolute 0.49 10*3 [0.30-1.00 10*3] (09/19/15 4:50 PM) Eos Absolute 0.06 10*3 [0.00-0.50 10*3] (09/19/15 4:50 PM) Baso Absolute 0.02 10*3 [0.00-0.20 10*3] (09/19/15 4:50 PM) Chemistry Most recent to 1 oldest [Reference Range]: Sodium Lvl [135-144 140 mEq/L mEq/L] (09/19/15 4:50 PM) Potassium Lvl 3.9 mEq/L [3.5-5.2 mEq/L] (09/19/15 4:50 PM) Chloride [99-111 104 mEq/L mEq/L] (09/19/15 4:50 PM) CO2 [22-31 mEq/L] 28 mEq/L (09/19/15 4:50 PM) AGAP [3-20] 8 (09/19/15 4:50 PM) BUN [10-20 mg/dL] 19 mg/dL (09/19/15 4:50 PM) Glucose Lvl [70-99 72 mg/dL mg/dL] (09/19/15 4:50 PM) Creatinine Lvl 0.75 mg/dL [0.57-1.11 mg/dL] (09/19/15 4:50 PM) eGFR [>60 mL/min] >60 mL/min 1 (09/19/15 4:50 PM) Calcium Lvl 9.4 mg/dL [8.9-10.5 mg/dL] (09/19/15 4:50 PM) Albumin Lvl [3.5-5.0 4.0 gm/dL gm/dL] (09/19/15 4:50 PM) Total Protein 6.8 gm/dL [6.4-8.3 gm/dL] (09/19/15 4:50 PM) Globulin [1.8-4.0 2.8 gm/dL gm/dL] (09/19/15 4:50 PM) ALT [0-55 U/L] 26 U/L (09/19/15 4:50 PM) AST [5-34 U/L] 31 U/L (09/19/15 4:50 PM) Alk Phos [40-150 100 U/L U/L] (09/19/15 4:50 PM) Bili Total [0.2-1.2 1.0 mg/dL mg/dL] (09/19/15 4:50 PM) Chol [0-199 mg/dL] 130 mg/dL (09/19/15 4:50 PM) Trig [0-149 mg/dL] 33 mg/dL (09/19/15 4:50 PM) HDL [40-84 mg/dL] 47 mg/dL (09/19/15 4:50 PM) LDL [0-130 mg/dL] 76 mg/dL (09/19/15 4:50 PM) VLDL Cholesterol 7 mg/dL [0-28 mg/dL] (09/19/15 4:50 PM) Cardiac Risk 2.8 [0.0-5.0] (09/19/15 4:50 PM) 1Result Comment: Multiply eGFR results by 1.21 for race. Immunizations No data available for this section Procedures Procedure Date Related Diagnosis Body Site Excision, lipoma 2013 Social History Social History Type Response Smoking Status Never smoker Assessment and Plan Extracted from: Title: Ambulatory Patient Education Author: Eloise Rizo PA-C Date : 09/19/15 Family [facility] Health Maintenance Adopting a healthy lifestyle and getting preventive care can go a long way to promote health and wellness. Talk with your health care provider about what schedule of regular examinations is right for you. This is a good chance for you to check in with your provider about disease prevention and staying healthy. In between checkups, there are plenty of things you can do on your own. Experts have done a lot of research about which lifestyle changes and preventive measures are most likely to keep you healthy. Ask your health care provider for more information. WEIGHT AND DIET Eat a healthy diet Be sure to include plenty of vegetables, fruits, low-fat dairy products, and lean protein. Do not eat a lot of foods high in solid fats, added sugars, or salt. Get regular exercise. This is one of the most important things you can do for your health. Most adults should exercise for at least 150 minutes each week. The exercise should increase your heart rate and make you sweat (moderate-intensity exercise). Most adults should also do strengthening exercises at least twice a week. This is in addition to the moderate-intensity exercise. Maintain a healthy weight Body mass index (BMI) is a measurement that can be used to identify possible weight problems. It estimates body fat based on height and weight. Your health care provider can help determine your BMI and help you achieve or maintain a healthy weight. For females 20 years of age and older: A BMI below 18.5 is considered underweight. A BMI of 18.5 to 24.9 is normal. A BMI of 25 to 29.9 is considered overweight. A BMI of 30 and above is considered obese. Watch levels of cholesterol and blood lipids You should start having your blood tested for lipids and cholesterol at 20 years of age, then have this test every 5 years. You may need to have your cholesterol levels checked more often if: Your lipid or cholesterol levels are high. You are older than 50 years of age. You are at high risk for heart disease. CANCER SCREENING Lung Cancer Lung cancer screening is recommended for adults 5580 years old who are at high risk for lung cancer because of a history of smoking. A yearly low-dose CT scan of the lungs is recommended for people who: Currently smoke. Have quit within the past 15 years. Have at least a [id number] history of smoking. A pack year is smoking an average of one pack of cigarettes a day for 1 year. Yearly screening should continue until it has been 15 years since you quit. Yearly screening should stop if you develop a health problem that would prevent you from having lung cancer treatment. Breast Cancer Practice breast self-awareness. This means understanding how your breasts normally appear and feel. It also means doing regular breast self-exams. Let your health care provider know about any changes, no matter how small. If you are in your 20s or 30s, you should have a clinical breast exam (CBE ) by a health care provider every 13 years as part of a regular health exam. If you are 40 or older, have a CBE every year. Also consider having a breast X-ray (mammogram) every year. If you have a family history of breast cancer, talk to your health care provider about genetic screening. If you are at high risk for breast cancer, talk to your health care provider about having an MRI and a mammogram every year. Breast cancer gene (BRCA) assessment is recommended for women who have family members with BRCA-related cancers. BRCA-related cancers include: Breast. Ovarian. Tubal. Peritoneal cancers. Results of the assessment will determine the need for genetic counseling and BRCA1 and BRCA2 testing. Cervical Cancer Routine pelvic examinations to screen for cervical cancer are no longer recommended for non women who are considered low risk for cancer of the pelvic organs (ovaries, uterus, and vagina) and who do not have symptoms. A pelvic examination may be necessary if you have symptoms including those associated with pelvic infections. Ask your health care provider if a screening pelvic exam is right for you. The Pap test is the screening test for cervical cancer for women who are considered at risk. If you had a hysterectomy for a problem that was not cancer or a condition that could lead to cancer, then you no longer need Pap tests. If you are older than 65 years, and you have had normal Pap tests for the past 10 years, you no longer need to have Pap tests. If you have had past treatment for cervical cancer or a condition that could lead to cancer, you need Pap tests and screening for cancer for at least 20 years after your treatment. If you no longer get a Pap test, assess your risk factors if they change ( such as having a new sexual partner). This can affect whether you should start being screened again. Some women have medical problems that increase their chance of getting cervical cancer. If this is the case for you, your health care provider may recommend more frequent screening and Pap tests. The human papillomavirus (HPV) test is another test that may be used for cervical cancer screening. The HPV test looks for the virus that can cause cell changes in the cervix. The cells collected during the Pap test can be tested for HPV. The HPV test can be used to screen women 30 years of age and older. Getting tested for HPV can extend the interval between normal Pap tests from three to five years. An HPV test also should be used to screen women of any age who have unclear Pap test results. After 30 years of age, women should have HPV testing as often as Pap tests. Colorectal Cancer This type of cancer can be detected and often prevented. Routine colorectal cancer screening usually begins at 50 years of age and continues through 75 years of age. Your health care provider may recommend screening at an earlier age if you have risk factors for colon cancer. Your health care provider may also recommend using home test kits to check for hidden blood in the stool. A small camera at the end of a tube can be used to examine your colon directly (sigmoidoscopy or colonoscopy). This is done to check for the earliest forms of colorectal cancer. Routine screening usually begins at age 50. Direct examination of the colon should be repeated every 510 years through 75 years of age. However, you may need to be screened more often if early forms of precancerous polyps or small growths are found. Skin Cancer Check your skin from head to toe regularly. Tell your health care provider about any new moles or changes in moles, especially if there is a change in a mole's shape or color. Also tell your health care provider if you have a mole that is larger than the size of a pencil eraser. Always use sunscreen. Apply sunscreen liberally and repeatedly throughout the day. Protect yourself by wearing long sleeves, pants, a wide-brimmed hat, and sunglasses whenever you are outside. HEART DISEASE, DIABETES, AND HIGH BLOOD PRESSURE Have your blood pressure checked at least every 12 years. High blood pressure causes heart disease and increases the risk of stroke. If you are between 55 years and 79 years old, ask your health care provider if you should take aspirin to prevent strokes. Have regular diabetes screenings. This involves taking a blood sample to check your fasting blood sugar level. If you are at a normal weight and have a low risk for diabetes, have this test once every three years after 45 years of age. If you are overweight and have a high risk for diabetes, consider being tested at a younger age or more often. PREVENTING INFECTION Hepatitis B If you have a higher risk for hepatitis B, you should be screened for this virus. You are considered at high risk for hepatitis B if: You were born in a country where hepatitis B is common. Ask your health care provider which countries are considered high risk. Your parents were born in a high-risk country, and you have not been immunized against hepatitis B (hepatitis B vaccine). You have HIV or AIDS. You use needles to inject street drugs. You live with someone who has hepatitis B. You have had sex with someone who has hepatitis B. You get hemodialysis treatment. You take certain medicines for conditions, including cancer, organ transplantation, and autoimmune conditions. Hepatitis C Blood testing is recommended for: Everyone born from 1945 through 1965. Anyone with known risk factors for hepatitis C. Sexually transmitted infections (STIs) You should be screened for sexually transmitted infections (STIs) including gonorrhea and chlamydia if: You are sexually active and are younger than 24 years of age. You are older than 24 years of age and your health care provider tells you that you are at risk for this type of infection. Your sexual activity has changed since you were last screened and you are at an increased risk for chlamydia or gonorrhea. Ask your health care provider if you are at risk. If you do not have HIV, but are at risk, it may be recommended that you take a prescription medicine daily to prevent HIV infection. This is called pre- exposure prophylaxis (PrEP). You are considered at risk if: You are sexually active and do not regularly use condoms or know the HIV status of your partner(s). You take drugs by injection. You are sexually active with a partner who has HIV. Talk with your health care provider about whether you are at high risk of being infected with HIV. If you choose to begin PrEP, you should first be tested for HIV. You should then be tested every 3 months for as long as you are taking PrEP. If you are premenopausal and you may become , ask your health care provider about preconception counseling. If you may become , take 400 to 800 micrograms (mcg) of folic acid every day. If you want to prevent , talk to your health care provider about control (contraception). OSTEOPOROSIS AND MENOPAUSE Osteoporosis is a disease in which the bones lose minerals and strength with aging. This can result in serious bone fractures. Your risk for osteoporosis can be identified using a bone density scan. If you are 65 years of age or older, or if you are at risk for osteoporosis and fractures, ask your health care provider if you should be screened. Ask your health care provider whether you should take a calcium or vitamin D supplement to lower your risk for osteoporosis. Menopause may have certain physical symptoms and risks. Hormone replacement therapy may reduce some of these symptoms and risks. Talk to your health care provider about whether hormone replacement therapy is right for you. HOME CARE INSTRUCTIONS Schedule regular health, dental, and eye exams. Stay current with your immunizations. Do not use any tobacco products including cigarettes, chewing tobacco, or electronic cigarettes. If you are , do not drink alcohol. If you are , limit how much and how often you drink alcohol. Limit alcohol intake to no more than 1 drink per day for non women. One drink equals 12 ounces of beer, 5 ounces of wine, or 1 ounces of hard liquor. Do not use street drugs. Do not share needles. Ask your health care provider for help if you need support or information about quitting drugs. Tell your health care provider if you often feel depressed. Tell your health care provider if you have ever been abused or do not feel safe at home. Document Released: 02/22/2012 Document Revised: 12/24/2014 Document Reviewed: [employer] Patient Information 2015 [employer]. This information is not intended to replace advice given to you by your health care provider. Make sure you discuss any questions you have with your health care provider. Preventive Care for Adults A healthy lifestyle and preventive care can promote health and wellness. Preventive health guidelines for women include the following [place] practices. A routine yearly physical is a good way to check with your health care provider about your health and preventive screening. It is a chance to share any concerns and updates on your health and to receive a thorough exam. Visit your dentist for a routine exam and preventive care every 6 months. [place] your teeth twice a day and floss once a day. Good oral hygiene prevents tooth decay and gum disease. The frequency of eye exams is based on your age, health, family medical history, use of contact lenses, and other factors. Follow your health care provider's recommendations for frequency of eye exams. Eat a healthy diet. Foods like vegetables, fruits, whole grains, low-fat dairy products, and lean protein foods contain the nutrients you need without too many calories. Decrease your intake of foods high in solid fats, added sugars, and salt. Eat the right amount of calories for you.Get information about a proper diet from your health care provider, if necessary. Regular physical exercise is one [...] fat based on height and weight. Your health care provider can find your BMI and can help you achieve or maintain [...] medicines if diet and exercise are not working. If you smoke, find out from your health care provider how to quit. If you do not use tobacco, do not start. Lung cancer screening is recommended for adults aged 5580 years who are at high risk for developing lung cancer because of a history of smoking. A yearly low-dose CT scan of the lungs is recommended for people who have at least a [id number] history of smoking and are a current [...] at least 15 years. Yearly screening should be stopped for people who develop a health problem that would prevent them from having lung cancer treatment. If you are , do not drink alcohol. If you are , be very cautious about drinking alcohol. If you are not and choose to drink alcohol, do not have more than 1 drink per day. One drink is [...] with medicines if weight loss and exercise do not work. If you are 5579 years old, ask your health care provider if you should take aspirin to prevent [...] how small, should be reported to a health care provider. Women in their 20s and 30s should have a clinical breast exam (CBE) by a health care provider as part of a regular health exam every 1 to 3 years. After age 40, women should have a CBE every year. Starting at age 40, women should consider having a mammogram (breast X-ray test) every year. Women who have a family history of breast cancer should talk to their health care provider about genetic screening. Women at a high risk of breast cancer should talk to their health care providers about having an MRI and a mammogram every year. Breast cancer gene (BRCA)-related cancer risk assessment is recommended for women who have family members with BRCA-related cancers. BRCA-related cancers include breast, ovarian, tubal, and peritoneal cancers. Having family members with these cancers may be associated with an increased risk for harmful changes (mutations) in the breast cancer genes BRCA1 and BRCA2. Results of the assessment will determine the need for genetic counseling and BRCA1 and BRCA2 testing. Routine pelvic exams to screen for cancer are no longer recommended for non women who are considered low risk for cancer of the pelvic organs ( ovaries, uterus, and vagina) and who do not have symptoms. Ask your health care provider if a screening pelvic exam is right for you. If you have had past treatment for cervical cancer or a condition that could lead to cancer, you need Pap tests and screening for cancer for at least 20 years after your treatment. If Pap tests have been discontinued, your risk factors (such as having a new sexual partner) need to be reassessed to determine if screening should be resumed. Some women have medical problems that increase the chance of getting cervical cancer. In these cases, your health care provider may recommend more frequent screening and Pap tests. The HPV test is an additional test [...] screening begins at the age of 50 years and continues through age 75 years. However, your health care provider may recommend screening at an earlier age if you have risk factors for colon cancer. On a yearly basis, your health care provider may provide home test kits to check for hidden blood in the stool. Use of a small camera at the end of a tube, to directly examine the colon (sigmoidoscopy or colonoscopy), can detect the earliest forms of colorectal cancer. Talk to your health care provider about this at age 50, when routine screening begins. Direct exam of the colon should be repeated every 5 10 years through age 75 years, unless early forms of pre-cancerous polyps or small growths are found. People who are at an increased risk for hepatitis B should be screened for this virus. You are considered at high risk for hepatitis B if: You were born in a country where hepatitis B occurs often. Talk with your health care provider about which countries are considered high risk. Your parents were born in a high-risk country and you have not received a shot to protect against hepatitis B (hepatitis B vaccine). You have HIV or AIDS. You use needles to inject street drugs. You live with, or have sex with, someone who has hepatitis B. You get hemodialysis treatment. You take certain medicines for conditions like cancer, organ transplantation, and autoimmune conditions. Hepatitis C blood testing is recommended for [...] can result in disability, cancer, and . You should be screened for sexually transmitted illnesses (STIs) including gonorrhea and chlamydia if: You are sexually active and are younger than 24 years. You are older than 24 years and your health care provider tells you that you are at risk for this type of infection. Your sexual activity has changed since you were last screened and you are at an increased risk for chlamydia or gonorrhea. Ask your health care provider if you are at risk. If you are at risk of being infected with HIV, it is recommended that you take a prescription medicine daily to prevent HIV infection. This is called preexposure prophylaxis (PrEP). You are considered at risk if: You are a heterosexual woman, are sexually active, and are at increased risk for HIV infection. You take drugs by injection. You are sexually active with a partner who has HIV. Talk with your health care provider about whether you are at high risk of being infected with HIV. If you choose to begin PrEP, you should first be tested for HIV. You should then be tested every 3 months for as long as you are taking PrEP. Osteoporosis is a disease in which the bones lose minerals and strength with aging. This can result in serious bone fractures or breaks. The risk of osteoporosis can be identified using a bone density scan. Women ages 65 years and over and women at risk for fractures or osteoporosis should discuss screening with their health care providers. Ask your health care provider whether you should take a calcium supplement or vitamin D to reduce the rate of osteoporosis. Menopause can be associated with physical symptoms and risks. Hormone replacement therapy is available to decrease symptoms and risks. You should talk to your health care provider about whether hormone replacement therapy is right [...] look at the skin on your back. Tell your health care provider of new moles, moles that have irregular borders, moles that are larger than a pencil eraser, or moles that have changed in shape or color. Stay current with required vaccines (immunizations). Influenza vaccine. All adults should be immunized every year. Tetanus, diphtheria, and acellular pertussis (Td, Tdap) vaccine. women should receive 1 dose of Tdap vaccine during each . The dose should be obtained regardless of the length of time since the last dose. Immunization is preferred during the [id number] week of gestation. An adult who has [...] . Unvaccinated health care workers born before [birth year] who lack laboratory evidence of measles, mumps, [...] immunized. Any person who resides in a fdc or long -term care facility should be [...] of PPSV23 vaccine is not recommended for [place] Indians, [place] Natives, or people younger than [...] Services / Frequency Ages 19 to 39 years Blood pressure check. / Every 1 to 2 years. Lipid and cholesterol check. / Every 5 years beginning at age 20. Clinical breast exam. / Every 3 years for women in their 20s and 30s. BRCA-related cancer risk assessment. / For women who have family members with a BRCA-related cancer (breast, ovarian, tubal, or peritoneal cancers). [...] pertussis (Tdap, Td) vaccine. / Consult your health care provider. women should receive 1 dose of Tdap vaccine during each . 1 dose of Td every 10 years. Varicella vaccine. / Consult your health care provider. females who do not have evidence of [...] 13-valent conjugate (PCV13) vaccine. / Consult your health care provider. Pneumococcal polysaccharide (PPSV23) vaccine. / 1 to [...] doses. Hepatitis A vaccine. / Consult your health care provider. Hepatitis B vaccine. / Consult your health care provider. Haemophilus influenzae type b (Hib) vaccine. / Consult your health care provider. Ages 40 to 64 years Blood pressure check. / Every 1 to 2 years. Lipid and cholesterol check. / Every 5 years beginning at age 20 years. Lung cancer screening. / Every year if you are aged 5580 years and have a 64-cawy-pker history of smoking and currently smoke or have quit within the past 15 years. Yearly screening is stopped once you have quit smoking for at least 15 years or develop a health problem that would prevent you from having lung cancer treatment. Clinical breast exam. / Every year after age 40 years. BRCA-related cancer risk assessment. / For women who have family members with a BRCA-related cancer (breast, ovarian, tubal, or peritoneal cancers). Mammogram. / Every year beginning at age 40 years and continuing for as long as you are in good health. Consult with your health care provider. Pap test. / Every 3 years starting at age 30 years through age 65 or 70 years with a history of 3 consecutive normal Pap tests. HPV screening. / Every 3 years from ages 30 years through ages 65 to 70 years with a history of 3 consecutive normal Pap tests. Fecal occult blood test (FOBT) of stool. / Every year beginning at age 50 years and continuing until age 75 years. You may not need to do this test if you get a colonoscopy every 10 years. Flexible sigmoidoscopy or colonoscopy. / Every 5 years for a flexible sigmoidoscopy or every 10 years for a colonoscopy beginning at age 50 years and continuing until age 75 years. Hepatitis C blood test. / For all people born from 1945 through 1965 and any individual with known risks for hepatitis C. Skin self-exam. / Monthly. Influenza vaccine. / Every year. Tetanus, diphtheria, and acellular pertussis (Tdap/Td) vaccine. / Consult your health care provider. women should receive 1 dose of Tdap vaccine during each . 1 dose of Td every 10 years. Varicella vaccine. / Consult your health care provider. females who do not have evidence of [...] 13-valent conjugate (PCV13) vaccine. / Consult your health care provider. Pneumococcal polysaccharide (PPSV23) vaccine. / 1 to 2 doses if you smoke cigarettes or if you have certain conditions. Meningococcal vaccine. / Consult your health care provider. Hepatitis A vaccine. / Consult your health care provider. Hepatitis B vaccine. / Consult your health care provider. Haemophilus influenzae type b (Hib) vaccine. / Consult your health care provider. Ages 65 years and over Blood pressure check. / Every 1 to 2 years. Lipid and cholesterol check. / Every 5 years beginning at age 20 years. Lung cancer screening. / Every year if you are aged 5580 years and have a 59-gfvv-genp history of smoking and currently smoke or have quit within the past 15 years. Yearly screening is stopped once you have quit smoking for at least 15 years or develop a health problem that would prevent you from having lung cancer treatment. Clinical breast exam. / Every year after age 40 years. BRCA-related cancer risk assessment. / For women who have family members with a BRCA-related cancer (breast, ovarian, tubal, or peritoneal cancers). Mammogram. / Every year beginning at age 40 years and continuing for as long as you are in good health. Consult with your health care provider. Pap test. / Every 3 years starting at age 30 years through age 65 or 70 years with 3 consecutive normal Pap tests. Testing can be stopped between 65 and 70 years with 3 consecutive normal Pap tests and no abnormal Pap or HPV tests in the past 10 years. HPV screening. / Every 3 years from ages 30 years through ages 65 or 70 years with a history of 3 consecutive normal Pap tests. Testing can be stopped between 65 and 70 years with 3 consecutive normal Pap tests and no abnormal Pap or HPV tests in the past 10 years. Fecal occult blood test (FOBT) of stool. / Every year beginning at age 50 years and continuing until age 75 years. You may not need to do this test if you get a colonoscopy every 10 years. Flexible sigmoidoscopy or colonoscopy. / Every 5 years for a flexible sigmoidoscopy or every 10 years for a colonoscopy beginning at age 50 years and continuing until age 75 years. Hepatitis C blood test. / For all people born from 1945 through 1965 and any individual with known risks for hepatitis C. Osteoporosis screening. / A one-time screening for women ages 65 years and over and women at risk for fractures or osteoporosis. Skin self-exam. / Monthly. Influenza vaccine. / Every year. Tetanus, diphtheria, and acellular pertussis (Tdap/Td) vaccine. / 1 dose of Td every 10 years. Varicella vaccine. / Consult your health care provider. Zoster vaccine. / 1 dose for adults aged 60 years or older. Pneumococcal 13-valent conjugate (PCV13) vaccine. / Consult your health care provider. Pneumococcal polysaccharide (PPSV23) vaccine. / 1 dose for all adults aged 65 years and older. Meningococcal vaccine. / Consult your health care provider. Hepatitis A vaccine. / Consult your health care provider. Hepatitis B vaccine. / Consult your health care provider. Haemophilus influenzae type b (Hib) vaccine. / Consult your health care provider. Family history and personal history of risk and conditions may change your health care provider's recommendations. Document Released: 10/05/2002 Document Revised: 12/24/2014 Document Reviewed: [facility] Patient Information 2015 [facility]. This information is not intended to replace advice given to you by your health care provider. Make sure you discuss any questions you have with your health care provider. Osteoarthritis Osteoarthritis is a disease that causes soreness and inflammation of a joint. It occurs when the cartilage at the affected joint wears down. Cartilage acts as a cushion, covering the ends of bones where they meet to form a joint. Osteoarthritis is the most common form of arthritis. It often occurs in older people. The joints affected most often by this condition include those in the: Ends of the fingers. Thumbs. Neck. Lower back. Knees. Hips. CAUSES Over time, the cartilage that covers the ends of bones begins to wear away. This causes bone to rub on bone, producing pain and stiffness in the affected joints. RISK FACTORS Certain factors can increase your chances of having osteoarthritis, including: Older age. Excessive body weight. Overuse of joints. Previous joint injury. SIGNS AND SYMPTOMS Pain, swelling, and stiffness in the joint. Over time, the joint may lose its normal shape. Small deposits of bone (osteophytes) may grow on the edges of the joint. Bits of bone or cartilage can break off and float inside the joint space. This may cause more pain and damage. DIAGNOSIS Your health care provider will do a physical exam and ask about your symptoms. Various tests may be ordered, such as: X-rays of the affected joint. An MRI scan. Blood tests to rule out other types of arthritis. Joint fluid tests. This involves using a needle to draw fluid from the joint and examining the fluid under a microscope. TREATMENT Goals of treatment are to control pain and improve joint function. Treatment plans may include: A prescribed exercise program that allows for rest and joint relief. A weight control plan. Pain relief techniques, such as: Properly applied heat and cold. Electric pulses delivered to nerve endings under the skin (transcutaneous electrical nerve stimulation [TENS]). Massage. Certain nutritional supplements. Medicines to control pain, such as: Acetaminophen. Nonsteroidal anti-inflammatory drugs (NSAIDs), such as naproxen. Narcotic or central-acting agents, such as tramadol. Corticosteroids. These can be given orally or as an injection. Surgery to reposition the bones and relieve pain (osteotomy) or to remove loose pieces of bone and cartilage. Joint replacement may be needed in advanced states of osteoarthritis. HOME CARE INSTRUCTIONS Take medicines only as directed by your health care provider. Maintain a healthy weight. Follow your health care provider's instructions for weight control. This may include dietary instructions. Exercise as directed. Your health care provider can recommend specific types of exercise. These may include: Strengthening exercises. These are done to strengthen the muscles that support joints affected by arthritis. They can be performed with weights or with exercise bands to add resistance. Aerobic activities. These are exercises, such as brisk walking or low- impact aerobics, that get your heart pumping. Iylxl-qs-[id number] activities. These keep your joints limber. Balance and agility exercises. These help you maintain daily living skills. Rest your affected joints as directed by your health care provider. Keep all follow-up visits as directed by your health care provider. SEEK MEDICAL CARE IF: Your skin turns red. You develop a rash in addition to your joint pain. You have worsening joint pain. You have a fever along with joint or muscle aches. SEEK IMMEDIATE MEDICAL CARE IF: You have a significant loss of weight or appetite. You have night sweats. FOR MORE INFORMATION National [place] of Arthritis and Musculoskeletal and Skin Diseases: www.niams.nih.gov National [place] on Aging: www.john.nih.gov [employer]: www.rheumatology.org Document Released: 08/09/2006 Document Revised: 12/24/2014 Document Reviewed: [employer] Patient Information 2015 [place], [place]. This information is not intended to replace advice given to you by your health care provider. Make sure you discuss any questions you have with your health care provider. No follow up information was provided. Extracted from: Title: Office Visit Note- WWE Author: Eloise Rizo PA-C Date: 09/19 Assessment/Plan Lipid screening, Lipid screening Will check lipids as she is fasting today. Ordered: Lipid Panel Office Visit Level 4 Est 02891 Osteoarthritis of left hand D/w pt about the nature of OA. She may try some Aleve, Tylenol orAdvil as needed for pain to the joints. She is to rest if she starts having pain in thehand. She is to RTC if pain isworsening. Ordered: Office Visit Level 4 Est 81384 Well woman exam (no gynecological exam) I d/w pt that she can defer the pap and pelvic exam for Q 3 years. Pt did defer today. Pt advised to report any postmenopausal bleeding or vaginal concerns. Pt will still return to clinic yearly for WWE. Pt is strongly advised to repeat screening mammo. She was given phone number to call and schedule. Basic lab today. Ordered: CBC w/ Differential Comprehensive Metabolic Panel Office Visit Level 4 Est 52330
--- OUTSIDE RECORDS SUMMARY | 2016-12-23 14:52 | XMS REPORT | Continuity of Care Document ---
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 Follow-up examination, following unspecified surgery - *Routine Viral warts, unspecified - *Chronic Viral warts, unspecified - *Acute 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5 g/dl 12.0-16.0 HCT 09:56:00 43.1 % 37.0-47.0 MCV 09:56:00 90.0 fL 82.0-99.0 MCH 09:56:00 30.3 pg 27.0-32.0 MCHC 09:56:00 33.6 g/dL 32.0-36.0 RDW 09:56:00 14.4 % 11.5-14.5 MPV 09:56:00 11.9 fL 8.8-14.8 Platelet Count 09:56:00 188 K/uL 150-400 Immature Granulocytes 09:56:00 0.0 % 0.0-1.0 Absolute Neutrophils 09:56:00 2.57 THOUS 1.90-7.00 Absolute Lymphocytes 09:56:00 1.31 THOUS 0.80-3.30 Absolute Monocytes 09:56:00 0.37 THOUS 0.30-1.00 Absolute Eosinophils 09:56:00 0.05 THOUS 0.00-0.50 Absolute Basophils 09:56:00 0.03 THOUS 0.00-0.20 Neutrophils 09:56:00 59 % 51-75 Lymphocytes 09:56:00 30 % 20-46 Monocytes 09:56:00 9 % 4-11 Eosinophils 09:56:00 1 % 0-4 Basophils 09:56:00 1 % 0-2 Testing performed at [facility] Reference Lab [address] [facility] [address] [employer]er Lino Schaefer MD Panel Description: Chemistry Profile Glucose 09:56:00 82 mg/dL 70-99 BUN 09:56:00 12 mg/dL 10-20 Creatinine 09:56:00 0.77 mg/dL 0.57-1.11 Calcium 09:56:00 9.8 mg/dL 8.9-10.5 Sodium 09:56:00 143 mEq/L 135-144 Potassium 09:56:00 4.1 mEq/L 3.5-5.2 Chloride 09:56:00 105 mEq/L 99-111 CO2 09:56:00 29 mEq/L 22-31 Albumin 09:56:00 4.2 g/dL 3.5-5.0 Bilirubin Total 09:56:00 0.7 mg/dL 0.2-1.2 Alkaline Phosphatase 09:56:00 100 U/L 40-150 Protein 09:56:00 7.5 g/dL 6.4-8.3 ALT (SGPT) 09:56:00 23 U/L 0-55 AST (SGOT) 09:56:00 31 U/L 5-34 Anion Gap 09:56:00 9 3-20 Globulin 09:56:00 3.3 g/dL 1.8-4.0 Testing performed at [facility] [address] [place] [address] [employer] Lino Schaefer MD Panel Description: Lipid Profile-[facility] Cholesterol 09:56:00 168 mg/dL 0-199 Triglycerides 09:56:00 40 mg/dL 0-149 HDL Cholesterol 09:56:00 58 mg/dL 40-84 LDL Cholesterol 09:56:00 102 mg/dL 0-130 VLDL Cholesterol 09:56:00 8 mg/dL 0-28 Cardiac Risk 09:56:00 2.9 0.0-5.0 Testing performed at [facility] Reference [facility] [address] [place] [address] [facility] [address] [employer] Lino Schaefer MD Panel Description: Non-HDL Cholesterol-[facility] Non-HDL Cholesterol 09:56:00 110 mg/dL 0-159 Testing performed at [facility] [address] [facility] [address] [employer]er Lino Schaefer MD Panel Description: TSH-[facility] TSH 09:56:00 0.58 uIU/mL 0.35-4.94 Testing performed at [facility] [address] [facility] [address] [employer]er Lino Schaefer MD Panel Description: EGFR-[facility] eGFR 09:56:00 >60 mL/min >60 Multiply eGFR results by 1.21 for race.Testing performed at [facility] [address] [facility] [address] [employer]er Lino Schaefer MD Vital Signs Date / Time: Height Weight Pulse Rate Blood Pressure Temperature /08:58:00 67.25 in 139.00 lbs 104/70 mm[Hg] 97.1 F Procedures Procedure Date Unknown Encounters Encounter Location Date Patient Visit [facility] FM Patient Visit [facility] FC Ophthamology Patient Visit [facility] New Surg Patient Visit [facility] New Pod Patient Visit [facility] New Pod Patient Visit [facility] Ophthamology Patient Visit [facility] Ophthamology Patient Visit [facility] New Surg Patient Visit [facility] FM Patient Visit [facility] New Surg Patient Visit Conversion Advance Directives Directive Effective Date Unknown
--- NOTE | 2016-12-23 14:55 | NUR ---
RUDDY PELAYO IN WITH PT
[2016-12-23] MEDS ORDERED: MELO-273 PO (15:07)
--- OUTSIDE RECORDS SUMMARY | 2016-12-23 15:07 | XMS REPORT | Continuity of Care Document ---
Author Author [facility] Organization [facility] Address Unknown Phone Unavailable Allergies Medications Problems Procedures Results Encounters ACCT No. Visit Date/Time Discharge Status Pt. Type Provider Facility Loc./Unit Complaint [id number] 10/18/2013 14:42:00 10/18/2013 23 :59:59 CLS Outpatient [id number] 09/18/2013 15:51:00 09/18/2013 23 :59:59 CLS Outpatient [id number] 09/08/2013 08:55:00 09/08/2013 23 :59:59 CLS Outpatient
[2016-12-23] MEDS ORDERED: NITROGLYCERIN 0.4 MG SUBLINGUAL TABLET SL PRN (15:15)
[2016-12-23] MEDS ORDERED: ASPIRIN 81 MG CHEWABLE TABLET PO ONE (15:15)
[2016-12-23] MEDS ORDERED: DiphenhydrAMINE 50 MG/ML INJECTION IV ONE (15:15)
[2016-12-23 15:22] LABS: BASOPHILS % (AUTO) 0.3 % (0-2); EOSINOPHILS % (AUTO) 0.5 % (0-4); HCT - HEMATOCRIT 45.7 % (36-46); HGB - HEMOGLOBIN 14.5 GM/DL (12-16); LYMPHOCYTES # (AUTO) 1.9 T/MM3 (1-4.8); LYMPHOCYTES % (AUTO) 28.8 % (23-45); MEAN CORPUSCULAR HGB 29.5 UUG (26-34); MEAN CORPUSCULAR HGB CONC(MCHC 31.7 GM/DL (31-37); MEAN CORPUSCULAR VOLUME 93.1 UM3 (80-100); MEAN PLATELET VOLUME 10.4 UM3 (9.4-12.4); MONOCYTES # (AUTO) 0.4 T/MM3 (0-0.8); MONOCYTES % (AUTO) 6.8 % (0-9.0); NEUTROPHILS #(AUTO)-ABSOLUTE 4.1 T/MM3 (1.8-7.7); NEUTROPHILS % (AUTO) 63.6 % (33-66); RED BLOOD COUNT 4.91 M/MM3 (4.00-5.20); WBC - WHITE BLOOD COUNT 6.5 T/MM3 (4.5-11.0)
[2016-12-23 15:27] LABS: ANION GAP 13 MEQ/L (5-15); BUN/CREATININE RATIO 19 RATIO (6-26); CALCIUM 9.7 MG/DL (8.4-10.2); CHLORIDE 104 MEQ/L (98-107); CO2 - CARBON DIOXIDE 28 MEQ/L (22-30); CREATININE 0.7 MG/DL (0.7-1.2); GLOMERULAR FILTRATION RATE 87; GLUCOSE 95 MG/DL (65-110); POTASSIUM 4.7 MEQ/L (3.6-5); SODIUM 145 MEQ/L (134-144)
--- NOTE | 2016-12-23 15:57 | ERPDOC ---
Departure Disposition Decision Date: December 23, 2016 Disposition Decision Time: 15:55 Disposition: 01 DISCHARGED HOME, SELF-CARE Impression Impression Impression: Primary Impression: Chest pain of uncertain etiology Additional Impression: Adverse drug reaction Encounter type: initial encounter Qualified Codes: T88.7XXA - Unspecified adverse effect of drug or medicament, initial encounter Severity: Moderate Condition: Stable Seen By: Mid-level only Referrals: MARY ABREU MD (Family) 2 Days Patient Instructions: Adverse Drug Reaction (ED), Noncardiac Chest Pain (ED) Problems/Meds/Labs Reviewed?: Yes Medications reviewed and manag: Yes Additional Instructions: THE EXACT SOURCE OF YOUR CHEST DISCOMFORT WAS NOT DETERMINED ON TODAYS EXAM, HOWEVER IT DOES NOT APPEAR TO BE RELATED TO ANYTHING DANGEROUS. WE FEEL THAT IT IS SAFE FOR YOU TO GO HOME. IT IS POSSIBLE THAT YOUR SYMPTOMS WERE RELATED TO AN ADVERSE MEDICATION REACTION TO THE MELOXICAM (MOBIC) YOU WERE PRESCRIBED FOR KNEE PAIN. WE DO RECOMMEND YOU AVOID THIS MEDICATION IN ADDITION TO OTHER MEDS SUCH ALLIEVE, MOTRIN OR IBUPROFEN UNTIL YOU DISCUSS THI WITH YOUR DOCTOR. FOLLOW UP WITH YOUR DOCTOR THIS WEEK; RETURN TO THE ER IF SYMPTOMS WORSEN. RECOMMEND TAKING TYLENOL FOR KNEE PAIN UNTIL YOU SEE YOU DOCTOR. Follow up care ordered?: Yes Mental Status: Alert, Oriented HPI - Chest Pain General Chief Complaint: Chest Pain Stated Complaint: LIGHT HEADED, CHEST PAIN Time Seen by Provider: 15:01 Source: patient, family Exam Limitations: no limitations HPI - Chest Pain Initial Comments Patient complains of chest discomfort that started approximately 90 minutes after taking the meloxicam for bilateral knee pain. Patient states this is the 1st time she has ever taken meloxicam or any other nonsteroidal anti- inflammatory medication. Patient described the sensation as a heaviness with a pain level of approximately 2/10 which continues and is constant; is not pleuritic. Denies SOA, sweating, N/V. Occurred At: home Onset/Timing: Rapid Duration: 1-3 hrs Pain/Severity Scale: Now & Worst: 2/10 Activities at Onset/Context: none Location: substernal Quality: pressure Associated Symptoms: dizziness, DENIES: abdominal pain, edema, fast HR, fever/ chills, headache, irregular HR, rash, shortness of breath, slow HR, swelling/ lump in chest, weakness Chest Pain Radiation: no radiation Nitro Today/Relief: no nitro taken today Aspirin Treatment Today: contraindicated (concern for ) Aspirin contraindicated becaus: Allergy to aspirin/NSAID Hx of Similar Symptoms: No Allergies: Coded Allergies: codeine (Verified Allergy, Unknown, SWELLING, 12/23/16) Past History Past Medical History Pt denies signifigant PMH Social History Occupational Hazard: No Review of Systems Constitutional Constitutional: see HPI, DENIES: chills, dizziness, fever Eyes General: DENIES: burning, itching Lids/Accessories: DENIES: erythema, swelling Vision: DENIES: change in color ENMT Ears: DENIES: pain Hearing: DENIES: tinnitus Balance: DENIES: vertigo Nose: DENIES: allergies, change in smell, foreign body, nosebleeds, obstruction , other, pain, see HPI Physical Exam General Vitals and Pain First Documented Vital Signs Date Time Temp Pulse Resp B/P Pulse Ox O2 Delivery O2 Flow Rate FiO2 12/23/16 14:50 98.0 66 18 140/79 98 Room Air Weight: Kilograms: 63.800 Height (feet): 5 Height (inches): 7.00 Triage Pain Scale: Normal Exams: Head: Normocephalic w/o trauma Eyes: Pupils are PERRLA w/ EOMI, No scleral icterus, irritation, or foreign bodies noted Fundi: Disks flat and sharp, No hemorrhages, or AV nicking noted Dental: No fractured, loose, or missing teeth noted Neck: Full range of motion, without adenopathy, JVD, bruits or thyromegaly Chest/Resp: Clear all gallegos, with good airflow, and symmetry bilaterally CV: Regular rate and rhythm, without murmur or gallop, Pulses 2+ all extremities, capillary refill, <2 seconds all ext., no pedal edema noted Abdomen: Bowel sounds positive, soft, non-tender, non-distended, no hepatosplenomegaly, masses or bruits noted : Vulva without rashes Lymphatic: No lymphadenopathy, or lymphedema noted Musculoskeletal: No tenderness Neurologic: Patient is alert, and oriented, cranial nerves Psychiatric: Patient exhibits, appropriate attention, emotion and affect Differential Diagnoses Considering: Acute CO, Angina, Aortic Dissection, Costochondritis, Esophageal Spasm, GERD, Hypertensive Emergency, Hyperventilation, Pancreatitis, Pericarditis, Pneumonia, Pulmonary Edema Progress Results/Orders Orders Procedure Category Date Status Time EKG EKG 12/23/16 Logged Cbc W/Auto LAB 12/23/16 Complete Diff-Reflex Manual 15:08 Bmp - Basic Metabolic LAB 12/23/16 Complete Panel 15:08 Troponin I W LAB 12/23/16 Complete Hemolysis Index 15:08 Chest 1 View RAD 12/23/16 Resulted 15:08 Iv Lock (Ed Only) EDM 12/23/16 Transmitted 15:08 Aspirin (Asa) PHA 12/23/16 Complete 15:15 Nitroglycerin PHA 12/23/16 Complete (Nitrostat) 15:15 Diphenhydramine PHA 12/23/16 Complete (Benadryl) 15:15 Lab Results Laboratory Tests Test 12/23/16 15:02 White Blood Count 6.5T/MM3 Red Blood Count 4.91M/MM3 Hemoglobin 14.5GM/DL Hematocrit 45.7% Mean Corpuscular Volume 93.1UM3 Mean Corpuscular Hemoglobin 29.5UUG Mean Corpuscular Hemoglobin Concent 31.7GM/DL RDW Standard Deviation 45.9FL Platelet Count 196T/MM3 Mean Platelet Volume 10.4UM3 Immature Granulocyte % (Auto) 0.0% Neutrophils (%) (Auto) 63.6% Lymphocytes (%) (Auto) 28.8% Monocytes (%) (Auto) 6.8% Eosinophils (%) (Auto) 0.5% Basophils (%) (Auto) 0.3% Absolute Immature Granulocyte (auto 0.00T/MM3 Absolute Neutrophils (auto) 4.1T/MM3 Absolute Lymphocytes (auto) 1.9T/MM3 Absolute Monocytes (auto) 0.4T/MM3 Absolute Eosinophils (auto) 0.0T/MM3 Absolute Basophils (auto) 0.0T/MM3 Turbidity < 20 Sodium Level 145MEQ/L Potassium Level 4.7MEQ/L Chloride Level 104MEQ/L Carbon Dioxide Level 28MEQ/L Anion Gap 13MEQ/L Blood Urea Nitrogen 13.0MG/DL Creatinine 0.7MG/DL Glomerular Filtration Rate Calc 87 BUN/Creatinine Ratio 19RATIO Glucose Level 95MG/DL Calculated Osmolality 279MOSM/KG Calcium Level 9.7MG/DL Icterus Index < 2 Troponin I < 0.012ng/ml Chemistry Specimen Hemolysis 76 Medications Current ED Medications Aspirin (ASA) 324 mg O ONCE PO Last administered on 12/23/16 15:54; Start 12/23 at 15:15; Stop 12/23/16 at 15:16; Status DC Nitroglycerin (Nitrostat) 0.4 mg Q5MIN PRN SL CHEST PAIN; Start 12/23/16 at 15: 15; Stop 12/23/16 at 16:21; Status DC Diphenhydramine HCl (Benadryl) 12.5 mg O ONCE IV Last administered on 15:57; Start 12/23/16 at 15:15; Stop 12/23/16 at 15:16; Status DC Progress Progress 1555 EKG done and is unremarkable, shows no ischemic changes. Chest x-ray shows no acute abnormalities. Patient's discomfort is gone now. Lab work, including troponin, are all within normal limits. At this time, it appears that patient possibly had a reaction to the meloxicam that she took for her knee pain. Patient states does not routinely take any medications and states that this includes ibuprofen or other anti-inflammatory medications. She also states that her son is ALLERGIC to anti-inflammatory medications and that when he took them last evening developed difficulty breathing. Discussed patient with Dr Quintana who agrees with RUDDY [place] APRN December 23, 2016 15:57
--- NOTE | 2016-12-23 15:59 | DI ---
Indication: ITS.REASON: Dizziness and chest pain PROCEDURE: CHEST 1 VIEW: Encounter: Initial Comparison: None FINDINGS: The lungs are clear. There is no abnormal airspace opacity, pleural effusion or pneumothorax identified. The heart size, pulmonary vasculature and mediastinum are within normal limits. No significant skeletal abnormality is seen. IMPRESSION: No acute cardiopulmonary abnormality. .
--- NOTE | 2016-12-23 16:00 | NUR ---
MEDS NITRO NOT GIVEN PT STATES NO PAIN
--- NOTE | 2016-12-23 16:15 | NUR ---
IVL SITE DC'D AT THIS TIME. CATH INTACT, DRSG APPLIED TO SITE.
[2016-12-23 16:20] VITALS: BP 118/73; PULSE 68; RESP 18; TEMP 98; O2SAT 97
--- NOTE | 2016-12-23 16:20 | NUR ---
DISMISSAL INSTRUCTIONS GIVEN/REVIEWED WITH PT AND SPOUSE. VERBALIZE UNDERSTANDING. PT LEAVES DEPT AMBULATORY UPON DISMISSAL.
--- NOTE | 2016-12-23 17:44 | NUR ---
WORK NOTE MAILED TO PT
== END 2016-12-23 16:20 | disposition home or self-care (01) ==
LOC: ED 14:49
DX: R07.89 Other chest pain (principal); T39.395A Adverse effect of other nonsteroidal anti-inflammatory drugs [NSAID], initial encounter; Y92.009 Unspecified place in unspecified non-institutional (private) residence as the place of occurrence of the external cause
CPT/HCPCS: 71010; 80048; 84484; 85025; 93005; 96374; 99284; J1200